=== PATIENT | male | born 1955 | race African-American/Black ===

== ENCOUNTER 2020-10-28 05:21 | Day surgery (SDC) | payer OTHER, BC ==
[2020-10-27 11:17] VITALS: BMI 26.1
[2020-10-28] MEDS ORDERED: LIDOCAINE HCL 2% JELLY 10 ML CARTRIDGE ONE (10:33)
[2020-10-28] MEDS ORDERED: LIDOCAINE HCL 2% JELLY 10 ML CARTRIDGE TP ONE (10:35)
[2020-10-28 10:47] VITALS: TEMP 98
[2020-10-28 11:58] VITALS: BP 140/90; PULSE 52
== END 2020-10-28 11:58 | disposition home or self-care (01) ==
LOC: JASU-ENDO 05:21
PROVIDERS: ATTEND Internal Medicine Gastroenterology
PROC: 0DBL8ZX Excision of Transverse Colon, Via Natural or Artificial Opening Endoscopic, Diagnostic (ICD-10-PCS; 2020-10-28)
PROC: 06LY4CC Occlusion of Hemorrhoidal Plexus with Extraluminal Device, Percutaneous Endoscopic Approach (ICD-10-PCS; principal; 2020-10-28 10:15)
DX: Z12.11 Encounter for screening for malignant neoplasm of colon (principal); K64.8 Other hemorrhoids; D12.3 Benign neoplasm of transverse colon
CPT/HCPCS: 88305-TC